=== PATIENT | female | born 1970 | race Caucasian/White ===

== ENCOUNTER 2016-09-16 08:15 | Emergency (ER) | payer BC | END 2016-09-16 11:25 | disposition home or self-care (01) | LOC: ER1 08:15 | DX: M54.42 Lumbago with sciatica, left side (principal); M54.41 Lumbago with sciatica, right side; I10 Essential (primary) hypertension; E78.5 Hyperlipidemia, unspecified; L40.50 Arthropathic psoriasis, unspecified; J45.909 Unspecified asthma, uncomplicated; M79.7 Fibromyalgia; M06.9 Rheumatoid arthritis, unspecified; Z90.49 Acquired absence of other specified parts of digestive tract; Z90.710 Acquired absence of both cervix and uterus; Z88.5 Allergy status to narcotic agent; Z88.1 Allergy status to other antibiotic agents; Z88.0 Allergy status to penicillin; Z88.2 Allergy status to sulfonamides; Z91.040 Latex allergy status | CPT/HCPCS: 72131; 96372; 99283; J2930 ==

== ENCOUNTER → 2016-09-27 | Outpatient (CLI) | payer BC | LOC: MAMO 08:00 | DX: Z12.31 Encounter for screening mammogram for malignant neoplasm of breast (principal) | CPT/HCPCS: G0202 ==

== ENCOUNTER → 2020-08-16 | Outpatient (CLI) | payer BC, OTHER ==
[~2020-08-16] MED LIST: DOXYCYCLINE HY100 MG PO; MEDROL DOSEPAK 24 MG PO
== END ==
LOC: CT 14:42
DX: R91.8 Other nonspecific abnormal finding of lung field (principal)
CPT/HCPCS: 71250

== ENCOUNTER → 2020-08-30 | Outpatient (CLI) | payer BC, OTHER ==
[2020-08-30 08:04] LABS: BUN/CREATININE RATIO 19 (0-10)
[2020-08-30 08:13] LABS: HEMOGLOBIN 13.2 gm/dl (12.3-15.3); RED BLOOD COUNT 4.76 M/UL (4.00-5.10); WHITE BLOOD COUNT 8.9 K/UL (4.5-11.0)
== END ==
LOC: LAB 07:11
PROVIDERS: Internal Medicine
DX: E78.5 Hyperlipidemia, unspecified (principal); I10 Essential (primary) hypertension; E03.9 Hypothyroidism, unspecified; R73.01 Impaired fasting glucose; Z79.899 Other long term (current) drug therapy
CPT/HCPCS: 36415; 80053; 80061; 83036; 84439; 84443; 85025

== ENCOUNTER → 2020-09-01 | Outpatient (CLI) | payer BC, OTHER | LOC: MAMO 07:39 | DX: Z12.31 Encounter for screening mammogram for malignant neoplasm of breast (principal) | CPT/HCPCS: 77063; 77067 ==

== ENCOUNTER 2020-09-26 15:38 | Emergency (ER) | payer BC, OTHER ==
[2020-09-26 17:40] LABS: HEMOGLOBIN 14.6 gm/dl (12.3-15.3); RED BLOOD COUNT 5.06 M/UL (4.00-5.10)
[2020-09-26 18:06] LABS: BUN/CREATININE RATIO 26 (0-10)
[2020-09-26] MEDS ORDERED: MEDROL DOSEPAK 24 MG PO (18:17)
[2020-09-26] MEDS ORDERED: DOXYCYCLINE HY100 MG PO (18:17)
== END 2020-09-26 18:40 | disposition home or self-care (01) ==
LOC: ER1 15:38
PROVIDERS: Emergency Medicine
DX: R21 Rash and other nonspecific skin eruption (principal); M79.89 Other specified soft tissue disorders; I10 Essential (primary) hypertension; Z90.710 Acquired absence of both cervix and uterus; Z90.49 Acquired absence of other specified parts of digestive tract
CPT/HCPCS: 73590; 80053; 85025; 85610; 85730; 93971; 99284

== ENCOUNTER → 2021-01-17 | Outpatient (CLI) | payer BC ==
[2021-01-17 11:01] LABS: BUN/CREATININE RATIO 30 (0-10)
== END ==
LOC: LAB 07:15
PROVIDERS: Nurse Practitioner
DX: I48.0 Paroxysmal atrial fibrillation (principal)
CPT/HCPCS: 36415; 80053; 80061; 83735; 84436; 84443

== ENCOUNTER → 2021-05-16 | Outpatient (CLI) | payer BC ==
[2021-05-16 13:00] LABS: HEMOGLOBIN 14.3 gm/dl (12.3-15.3); RED BLOOD COUNT 4.92 M/UL (4.00-5.10); WHITE BLOOD COUNT 9.4 K/UL (4.5-11.0)
[2021-05-16 13:25] LABS: BUN/CREATININE RATIO 21 (0-10)
== END ==
LOC: LAB 12:10
PROVIDERS: Family Medicine
DX: M06.4 Inflammatory polyarthropathy (principal); M15.0 Primary generalized (osteo)arthritis; M79.7 Fibromyalgia; Z68.43 Body mass index [BMI] 50.0-59.9, adult
CPT/HCPCS: 36415; 80053; 85025; 85652; 86140

== ENCOUNTER → 2021-08-31 | Outpatient (CLI) | payer BC | LOC: MAMO 08-24 10:00 | DX: Z12.31 Encounter for screening mammogram for malignant neoplasm of breast (principal) | CPT/HCPCS: 77063; 77067 ==

== ENCOUNTER → 2021-09-10 | Outpatient (CLI) | payer BC | LOC: KOH-I 15:51 | DX: R91.1 Solitary pulmonary nodule (principal) | CPT/HCPCS: 71250 ==

== ENCOUNTER → 2021-12-15 | Outpatient (CLI) | payer BC ==
[2021-12-15 12:59] LABS: HEMOGLOBIN 13.8 gm/dl (12.3-15.3); RED BLOOD COUNT 4.94 M/UL (4.00-5.10); WHITE BLOOD COUNT 8.2 K/UL (4.5-11.0)
[2021-12-15 13:21] LABS: BUN/CREATININE RATIO 32 (0-10)
[2021-12-16 07:07] LABS: ESTRADIOL 30.6 pg/mL (.); FSH 46.3 mIU/mL (.); LUTEINIZING HORMONE(LH) 68.6 mIU/mL (.); VITAMIN D, 25-HYDROXY 46.6 ng/mL (30.0-100.0)
== END ==
LOC: LAB 11:56
PROVIDERS: Internal Medicine
DX: R53.83 Other fatigue (principal); E78.5 Hyperlipidemia, unspecified; R73.01 Impaired fasting glucose; Z51.81 Encounter for therapeutic drug level monitoring
CPT/HCPCS: 36415; 80053; 80061; 82607; 82670; 82746; 83001; 83002; 83036; 83735; 84439; 84443; 85025